=== PATIENT | male | born 1955 | race Caucasian/White ===

== ENCOUNTER 2022-07-18 01:24 | HOS | payer OTHER, MEDICARE, MEDICAID, SELFPAY ==
[2022-07-18] VITALS (8 sets, daily range): BP systolic 92–105; BP diastolic 42–65; PULSE 55–71; RESP 14–16; TEMP 36.1–37; O2SAT 91–98
--- NOTE | 2022-07-18 00:46 | ADMGEN ---
This patient, Axel Garcia, was admitted to [facility] Surg Room 318-01. Patient/family oriented to hospital policies and general routines including ID bracelet, bed and alarms, visiting hours, pain management, procedures, bathroom and other care routines, personal items, smoking policy, room service/diet, and visiting hours. Information on how to activate the Rapid Response Team has been discussed. Patient/Family are encouraged to report perceived risks to care and to ask questions if they do not understand what they are told or what they should do.
[2022-07-18] MEDS: ALBUTEROL SULFATE NEB 2.5 MG/3 ML INH INHALATION ×2 (07:10→14:55)
[2022-07-18] MEDS: LACTULOSE 20 GM/30 ML UDC 30 GM PO ×3 (09:46→17:52)
[2022-07-18] MEDS: PROPRANOLOL HCL 20 MG TABLET PO (09:47)
[2022-07-18] MEDS: THIAMINE HCL 100 MG TABLET PO (09:50)
[2022-07-18] MEDS: GABAPENTIN 300 MG CAPSULE PO ×3 (09:50→17:52)
[2022-07-18] MEDS: MAGNESIUM OXIDE 400 MG TABLET PO (09:50)
[2022-07-18] MEDS: FUROSEMIDE 40 MG TABLET PO (09:50)
[2022-07-18] MEDS: FOLIC ACID 1 MG TABLET PO (09:51)
[2022-07-18] MEDS: rifAXIMin 550 MG TABLET PO (09:51)
[2022-07-18] MEDS: PANTOPRAZOLE SOD SESQUIHYDRATE 20 MG TAB PO (09:51)
[2022-07-18] MEDS: SPIRONOLACTONE 50 MG TABLET 100 MG PO (09:51)
[2022-07-18] MEDS: LORazepam (*CRX) 1 MG TABLET PO ×3 (09:57→17:56)
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
[2022-07-18 12:39] LABS: Ammonia < 9 umol/L (9-30)
[2022-07-18 13:53] LABS: Appearance Urine Clear (Clear); Bilirubin Urine Negative (Negative); Blood Urine Negative (Negative); Color Urine Yellow (Yellow); Glucose Urine UA Negative (Negative); Ketones Urine Negative (Negative); Leukocyte Esterase Ur Negative LEU/UL (Negative); Nitrate Urine Negative (Negative); Protein Urine Negative (Negative); Specific Grav Ur 1.006 (1.001-1.035); Urobilinogen Urine 0.2 mg/dL (<2.0); pH Urine 5.5 (5.0-9.0)
[2022-07-18 14:27] LABS: Add Urine Microscopic? NO
--- NOTE | 2022-07-18 18:17 | PM.DS ---
DS: Admitting Diagnosis Discharge Date 07/18/2022 Admitting Diagnosis ESLD DS: Discharge Diagnosis Discharge Diagnosis (1) Palliative care encounter: Code(s): Z51.5 - Encounter for palliative care Status: Acute Assessment and Plan: Admitted to inpatient hospice due to patient safety, to resume home meds, and for possible placement (2) Hepatic encephalopathy: Code(s): K76.82 - Hepatic encephalopathy Status: Acute (3) Cirrhosis of liver: Code(s): K74.60 - Unspecified cirrhosis of liver Status: Acute (4) Alcohol use, unspecified with unspecified alcohol-induced disorder: Code(s): F10.99 - Alcohol use, unspecified with unspecified alcohol-induced disorder Status: Acute DS: Summary Hospital Course Reason for hospitalization: Unsafe at home Hospital Course: Admitted to inpatient hospice for safety and placement. Home medications were continued. He tolerated diet and remained comfortable though confused. Time Spent with Patient Time attestation: Total time spent providing and/or coordinating discharge services: Exam Narrative: HEENT: PERRL, sclerae icteric, pharyngeal mucosa pink and intact NECK: No JVD CHEST: Clear to auscultation. Normal effort. HEART: NL S1/S2, IRREGULAR, no murmur ABDOMEN: BS+, protuberant butsoft, nontender, no mass, no bruits EXTREMITIES: Trace pitting ankle edema bilaterally NEUROLOGIC: CN intact and symmetric to inspection. MUSCULOSKELETAL: Tone and strength symmetric. PSYCH: Alert. Oriented to person only, confused, restless, speech clear but not consistently coherent DS: Data Data Completed and Pending Labs on day of discharge: Labs from last 24 hours 07/18/22 07/18/22 13:40 12:05 Ammonia < 9 L Urine Color Yellow Urine Appearance Clear Urine pH 5.5 Ur Specific [place] 1.006 Urine Protein Negative Urine Glucose (UA) Negative Urine Ketones Negative Ur Blood (Man) Negative Urine Nitrate Negative Urine Bilirubin Negative Urine Urobilinogen 0.2 Leukocyte Esterase Rfl Negative Discharge Plan Discharge Attending physician on discharge: Lupillo Bassett Discharging Clinician: Lupillo Bassett Patient Disposition: Hospice - Medical Facility Activity: other - see discharge instructions Diet: other - see discharge instructions Discharge Instructions: Up with assist Diet as tolerated Stand Alone Forms: General Discharge Information, Group Home Discharge Discharge Medications: New lorazepam 1 mg Tablet 1 mg PO Q4H PRN (Reason: Anxiety/Restlessness) Qty: 1 0RF lorazepam 1 mg Tablet 1 mg PO TID Qty: 30 0RF oxycodone 5 mg Tablet 5 mg PO Q8H PRN (Reason: Pain Rated 7-10) Qty: 7 0RF bisacodyl 10 mg Suppository 10 mg RECTAL QAM PRN (Reason: Constipation) Qty: 1 0RF folic acid 1 mg Tablet 1 mg PO DAILY Qty: 30 0RF furosemide 40 mg Tablet 40 mg PO QAM Qty: 30 0RF gabapentin [Neurontin] 300 mg Capsule 300 mg PO TID Qty: 30 0RF hydroxyzine HCl 25 mg Tablet 25 mg PO Q6H PRN (Reason: Itching) Qty: 10 0RF magnesium hydroxide [Milk of Magnesia] 400 mg/5 mL Suspension 30 ml PO QAM PRN (Reason: Constipation) Qty: 100 0RF magnesium oxide 400 mg (241.3 mg magnesium) Tablet 400 mg PO DAILY Qty: 10 0RF ondansetron 4 mg Tablet,Disintegrating 4 mg PO Q4HR PRN (Reason: Nausea And Vomiting) Qty: 10 0RF pantoprazole [Protonix] 20 mg Tablet,Delayed Release (Dr/Ec) 20 mg PO QAM Qty: 10 0RF polyethylene glycol 3350 [Miralax] 17 gram Powder In Packet 17 g PO Q12HR PRN (Reason: Constipation) Qty: 14 0RF propranolol 20 mg Tablet 20 mg PO DAILY Qty: 10 0RF spironolactone [Aldactone] 50 mg Tablet 100 mg PO QAM Qty: 10 0RF lactulose 20 gram/30 mL Solution 30 g PO QID Qty: 450 0RF albuterol sulfate 2.5 mg /3 mL (0.083 %) Solution For Nebulization 2.5 mg inhalation Q8HRT Qty: 21 0RF haloperidol 1 mg
[2022-07-19] MEDS: LACTULOSE 20 GM/30 ML UDC 30 GM PO (00:11)
[2022-07-19] MEDS: rifAXIMin 550 MG TABLET PO (00:11)
== END 2022-07-18 18:19 | disposition hospice, inpatient (51) | DRG 951 ==
PROVIDERS: Admitting Provider Internal Medicine; Visit Provider Internal Medicine
DX: Z51.5 Encounter for palliative care (principal); F10.99 Alcohol use, unspecified with unspecified alcohol-induced disorder; K76.82 Hepatic encephalopathy; K74.60 Unspecified cirrhosis of liver
CPT/HCPCS: 36415; 81003; 82140; 94640; A9270